=== PATIENT | female | born 1945 | race Caucasian/White ===

== ENCOUNTER → 2016-05-15 | Outpatient (CLI) | payer MEDICARE, BC ==
[~2016-05-15] MED LIST: LISI10TA2 PO; LORA-407 PO; METF500T4 PO; SIMV-39 PO; SPIR50TA31 PO; ZOLP10TA PO
--- NOTE | 2016-05-15 15:30 | RADRPT ---
PROCEDURE: Left knee radiographs. CLINICAL INDICATION: Left knee pain. Postop. TECHNIQUE: Three views. Weight bearing. Frontal, lateral, and patellar view. COMPARISON: 05/18/2014. FINDINGS: There is no fracture or dislocation. The soft tissues are normal. There is a total left knee arthroplasty which appears satisfactory. There is no lytic or blastic lesion. There is no joint effusion. IMPRESSION: 1. Satisfactory postoperative appearance of the left knee. 2. No change from 05/18/2014. RPTAT: QQ .Kwaku Rubio MD, MD Date Time Electronically viewed and signed by .Kwaku Rubio MD, MD on 05/15/2016 15:29 .R/
--- NOTE | 2016-05-15 18:07 | RADRPT ---
PROCEDURE: XR Right hip and pelvis. CLINICAL INDICATION: Right hip pain and pelvic pain. TECHNIQUE: 3 views. Frontal pelvis. Frontal and lateral right hip. COMPARISON: None. FINDINGS: There is no fracture or dislocation. The soft tissues are normal. There are degenerative changes of both hips with osteophytes noted. There is joint space narrowing on the right. There is no lytic or blastic lesion. There is no radiopaque foreign body. IMPRESSION: 1. Moderate degenerative changes of the left hip. 2. Mild degenerative changes of the left hip. 3. Otherwise unremarkable study. RPTAT: QQ .Kwaku Rubio MD, MD Date Time Electronically viewed and signed by .Kwaku Rubio MD, on 05/15/2016 18:07 .R/
== END | disposition home or self-care (01) ==
LOC: HKI 14:32
PROVIDERS: ATTEND Orthopaedic Surgery
DX: M51.36 Other intervertebral disc degeneration, lumbar region (principal); M54.16 Radiculopathy, lumbar region; Z96.652 Presence of left artificial knee joint
CPT/HCPCS: 73502; 73562; G0463

== ENCOUNTER → 2016-09-30 | Outpatient (CLI) | payer MEDICARE, BC ==
--- NOTE | 2016-09-30 13:52 | RADRPT ---
PROCEDURE: XR pelvis/right hip. CLINICAL INDICATION: Hip pain TECHNIQUE: AP pelvis/AP and lateral right hip views performed COMPARISON: 05/05/2016 FINDINGS: There is severe right hip osteoarthrosis and mild left hip osteoarthrosis. This is associated with j oint space narrowing, subchondral sclerosis , subchondral cyst formation and osteophytosis. There i s normal mineralization. No fractures or osseous lesions are identified. The soft tissues are unre markable. IMPRESSION: Severe right hip osteoarthrosis. Mild left hip osteoarthrosis RPTAT: HGDB .Justino Celestin MD, Date Time Electronically viewed and signed by .Justino Celestin MD, on 09/30/2016 13:51 .B/
== END | disposition home or self-care (01) ==
LOC: HKI 09:36
PROVIDERS: ATTEND Orthopaedic Surgery
DX: M25.551 Pain in right hip (principal); M16.11 Unilateral primary osteoarthritis, right hip; E66.01 Morbid (severe) obesity due to excess calories; Z96.652 Presence of left artificial knee joint
CPT/HCPCS: 73502; G0463

== ENCOUNTER → 2016-11-13 | Outpatient (CLI) | payer MEDICARE, BC | END | disposition home or self-care (01) | LOC: HKI 09:28 | PROVIDERS: ATTEND Orthopaedic Surgery | DX: Z01.818 Encounter for other preprocedural examination (principal) ==

== ENCOUNTER 2016-11-26 07:02 | Inpatient (IN) | payer MEDICARE, BC ==
[2016-11-26] VITALS (26 sets, daily range): BP systolic 84–167; BP diastolic 48–77; PULSE 70–98; RESP 14–22; Ht 167.6 cm; Wt 143.0 kg
[~2016-11-26] VITALS: Ht 167.6 cm; Wt 143.0 kg
[~2016-11-26 07:02] MED LIST changes: +BUPIVACAINE LIPOSOME/PF 266 MG/20 ML VIAL INFIL SCH; +CEFAZOLIN 1 GM INJ ONE; +CEFAZOLIN 2GM/50 ML (PMX) 50 ML X1 BEFORE INCISION IVPB SCH; +CELECOXIB 400 MG PO X1 DOSE PO SCH; +EXPAREL NOTE (BUPIVICAINE LIPOSOMAL) XX SCH; +LACTATED RINGER'S 1,000 ML IV SCH; +PAIN COCKTAIL-CEFUROXIME IRR SCH; +PREGABALIN 300 MG PO X1 PO SCH; +SOD CHLORIDE 0.9% IV SCH; +SOD CHLORIDE 0.9% IVPB SCH; +TRANEXAMIC ACID IV SCH; +TRANEXAMIC ACID IVPB SCH; +oxyCODONE (CR) 10 MG TAB [oxyCONTIN] X1 DOSE PO SCH; +traMADOL 50 MG TAB X 1 DOSE PO SCH
[2016-11-26] MEDS ORDERED: LOSA50TA6 PO (08:32)
[2016-11-26] MEDS ORDERED: GLIP5TAB13 PO (08:33)
[2016-11-26] MEDS ORDERED: TOLT4CAP13 PO (08:33)
[2016-11-26] MEDS ORDERED: GABA100C14 PO (08:34)
[2016-11-26] MEDS ORDERED: METF1000 PO (08:34)
--- NOTE | 2016-11-26 10:07 | HPN ---
Date/Time of Note Date/Time of Note DATE: 11/26/16 TIME: 10:06 Interval H&P Admission Note Pt. seen H&P reviewed: No system changes No changes from H&P from 11/19/16 by WALT Villafana MD Nov 26, 2016 10:07
[2016-11-26] MEDS ORDERED: VANCOMYCIN 1 GM INJ ONE (10:09)
[2016-11-26] MEDS ORDERED: POLYMYXIN B 500000 UNIT INJ ONE (10:09)
[2016-11-26] MEDS ORDERED: LIDOCAINE 2% (SDV) 5 ML INJ ONE (10:34)
[2016-11-26] MEDS ORDERED: PROPOFOL 100 ML ONE (10:34)
[2016-11-26] MEDS ORDERED: MIDAZOLAM 1 MG/ML 2 ML INJ ONE ×2 (10:35→10:50)
[2016-11-26] MEDS ORDERED: HEPARIN 1000 UNITS/ML 10 ML INJ ONE (10:36)
[2016-11-26] MEDS ORDERED: FENTAnyl 50 MCG/ML VIAL ONE (10:36)
[2016-11-26] MEDS ORDERED: BACITRACIN 50000 UNITS INJ ONE (10:52)
[2016-11-26] MEDS ORDERED: HYDROmorphONE (0.2 MG/ML) 10ML SYG IV PRN (12:30)
[2016-11-26] MEDS ORDERED: ONDANSETRON 4 MG INJ IV PRN (12:30)
[2016-11-26] MEDS ORDERED: MEPERIDINE 25 MG INJ IV PRN (12:30)
[2016-11-26] MEDS ORDERED: DIPHENHYDRAMINE 50 MG INJ IV PRN (12:30)
[2016-11-26] MEDS ORDERED: FENTAnyl 50 MCG/ML VIAL IV PRN (12:30)
[2016-11-26] MEDS ORDERED: PROCHLORPERAZINE 10 MG INJ IV PRN (12:30)
[2016-11-26] MEDS ORDERED: EPHEDrine SULFATE 50 MG/5 ML SYG ONE (12:57)
[2016-11-26] MEDS ORDERED: FAMOTIDINE 20 MG INJ ONE (12:58)
[2016-11-26] MEDS ORDERED: METOCLOPRAMIDE 10 MG INJ ONE (12:58)
[2016-11-26] MEDS ORDERED: ONDANSETRON 4 MG INJ ONE (12:58)
[2016-11-26] MEDS ORDERED: SUCCINYLCHOLINE CHLORIDE 100 MG/5 ML SYG IV ONE (13:52)
[2016-11-26] MEDS ORDERED: MAGNESIUM HYDROXIDE 30ML CUP PO PRN (15:00)
[2016-11-26] MEDS ORDERED: NACL 0.9% 3 ML SYG IV SCH (15:00)
[2016-11-26] MEDS ORDERED: NA PHOSPHATE/BIPHOS 133 ML ENEMA PR PRN (15:00)
[2016-11-26] MEDS ORDERED: DIPHENHYDRAMINE 25 MG CAP PO PRN (15:00)
--- NOTE | 2016-11-26 15:04 | OPR ---
Date/Time of Note Date/Time of Note DATE: 11/26/16 TIME: 15:01 Operative Report Procedure Description DATE: 11/26/2016 PREOPERATIVE DIAGNOSIS: Right hip osteoarthritis POSTOPERATIVE DIAGNOSIS: Right hip osteoarthritis OPERATION PERFORMED: Right anterior total hip arthroplasty SURGEON: Walt Abbott MD BRUSH HOLDER INSPECTOR: Jamie Ramos PA-C COMPONENTS USED: DePuy 48 mm Gription Madison cup, one 6.5 millimeters screw, 48/32 Altrx polyethylene liner, 3 standard Actis stem, 32+5 ceramic head ANESTHESIA: Spinal plus general endotracheal intubation. ANESTHESIOLOGIST: Gill Dai M.D. ESTIMATED BLOOD LOSS: 500 cc INTRAVENOUS FLUIDS: Crystalloid 3700 cc crystalloid, 125 cc autologous Cell Saver blood SPECIMENS: Femoral head. DRAINS: Hemovac 1 COMPLICATIONS: None. DISPOSITION: The patient tolerated the procedure well and was taken to the recovery room in stable condition. INDICATIONS: The patient is a 71-year-old woman with severe right hip osteoarthritis who has had worsening pain despite nonsurgical means of treatment including activity modifications, ambulatory assist devices, and anti- inflammatory medications. Despite these measures she has had worsening pain I feel she will benefit from a total hip arthroplasty through an anterior approach. The risks, benefits, and alternatives of the procedure were explained in detail to the patient. I explained the risks of the surgery to include, but not be limited to: bleeding and possible need for blood transfusion; infection; pain; stiffness; neurovascular injury with possible numbness, weakness, and/or paralysis anywhere from the hip down to the toes; fracture; instability; dislocation; leg length inequality; wear and/or loosening of the prosthesis and possible need for future revision; blood clots; pulmonary embolism; and anesthetic complications such as heart attack, stroke, GI bleed, pneumonia, and/ or . Ample time was allowed for the patient to ask questions, all of which were addressed and answered. The patient understood the risks involved and wished to proceed. Informed consent was signed prior to the procedure. PROCEDURE: The patient's right hip was initialed with a marking pen in the preoperative area to identify the correct operative site. The patient was brought to the operating room and transferred from the [facility] to the [facility] where a spinal anesthetic was administered. The patient was then anesthetized and intubated. A Cooper catheter was placed. Both feet were placed into well padded boots which were then placed into the leg holders of the traction booms. A timeout was performed to confirm that the right side was the correct operative site. The patient was given 2 g of intravenous Ancef within one hour prior to the procedure. The operative hip was prepped and draped in the usual sterile fashion. A 10 cm oblique incision was made over the anterior aspect of the hip and carried down through subcutaneous tissue and fat with sharp dissection. The tensor fascia astrid was incised along the length of the wound. The tensor fascia muscle was retracted laterally and the sartorius medially. The anterior circumflex vessels were identified and tied off with 2-0 silk suture and coagulated with the Tissue Link collection systems administrator. The rectus femoris was elevated off the anterior capsule and an anterior capsulectomy performed. A femoral neck osteotomy was made and the head removed from the acetabulum. The acetabulum was denuded of cartilage circumferentially, as was the femoral head. Retractors were placed around the acetabulum. The remnants of the labrum and ligamentum teres were excised. I reamed the acetabulum to the medial wall and then went into an anatomic position and increased the reamer size in 2 mm increments until I got a good bite and was down to bleeding subchondral bone. The Madison cup was opened and impacted into the acetabulum and sat flush circumferentially, getting a good bite. C-arm imaging showed it had about 40 to 45 degrees of abduction and 20 degrees of anteversion. A single 6.5 screw was drilled and filled to appropriate length, getting a good bite. remove this sentence if no screws are utilized] The real liner was opened and impacted into the acetabulum and sat flush circumferentially. Attention was turned towards the femur. The operative leg was carefully lowered to the floor with the leg adducted. The foot was then externally rotated to approximately 110 degrees. A posteromedial release was performed to optimize exposure. The femoral hook was placed underneath the proximal femur and the hydraulic lift was then used to elevate the femur up out of the wound. The anju cutter osteotome was used to remove the remaining overhanging greater trochanter. The femur was then broached, going up in one size increments until it sat flush with the neck cut and a stable fit was achieved. The trial neck and head were assembled and reduced into the acetabulum. Fluoroscopic imaging showed the components to be in good position and the leg lengths and offsets to be equal. At this point, the trial was dislocated and the trial broach removed. The canal was irrigated and dried. The real stem was opened and impacted into the femur. The trunnion was irrigated and dried, and the real femoral head was impacted onto the trunnion, and reduced into the acetabulum. The soft tissues were infiltrated with a mixture of 150 mg of 0.5% Bupivacaine, 8 mg of Duramorph, 300 mcg of epinephrine, 30 mg of Toradol, 100 mcg of clonidine, 750 mg of cefuroxime and 86 mL of normal saline, followed by an injection of 266 mg of liposomal Bupivacaine. At this point the hip was irrigated with a mixture of betadine/saline and then antibiotic saline with pulsatile lavage. A Hemovac drain was placed in the deep portion of the wound and brought out the anterolateral thigh. There was good hemostasis. The tensor fascia astrid was repaired with a running #1 Vicryl. The deep fat layer was irrigated and closed with 2-0 Stratafix and the subcutaneous layer closed with 3 -0 Vicryl and the skin was closed with verito and then sealed with Dermabond. The drain was secured with 3-0 nylon. The sponge and needle counts were correct at the end of the case. The wound was covered with an occlusive dressing. The patient was awakened, extubated, and taken to the recovery room in stable condition. WALT ABBOTT MD Nov 26, 2016 15:04
[2016-11-26 15:18] LABS: ABNORMAL IP MESSAGE 1; HEMATOCRIT 35.5 % (37.0-47.0); HEMOGLOBIN 11.5 g/dl (12.0-16.0); MEAN CORPUSCULAR HGB CONC 32.4 g/dl (32.0-37.0); MEAN CORPUSCULAR VOLUME 95.7 fl (82.0-101.0); RED BLOOD COUNT 3.71 10^6/ul (4.20-5.40); RED CELL DISTRIBUTION WIDTH 14.2 % (11.5-14.5); WHITE BLOOD COUNT 6.7 10^3/ul (4.8-10.8)
[2016-11-26 15:20] LABS: POSITIVE DIFF @See below
[2016-11-26] MEDS: CEFAZOLIN 2 GM/50 ML (PMX) 50 ML IVPB SCH ×2 (15:32→23:06)
--- NOTE | 2016-11-26 15:32 | PN ---
Date/Time of Note Date/Time of Note DATE: 11/26/16 TIME: 15:31 Assessment/Plan Lines/Catheters IV Catheter Type (from Nrsg): Saline Lock Assessment/Plan Assessment/Plan Stable in PACU, s/p right anterior ANA -continue Ancef -pain meds as needed -SCDs BLE for DVT prophylaxis -hold ASA due to low preoperative platelet count -check AM labs -monitor drain -medicine to manage diabetic control -d/c brooks in AM XR of the right hip is pending at this time Subjective 24 Hr Interval Summary Stable in PACU. Denies pain. Moving all extremities. Exam/Review of Systems Vital Signs Vitals Vital Signs Date Time Temp Pulse Resp B/P Pulse Ox O2 Delivery O2 Flow Rate FiO2 11/26/16 16:15 98.1 81 16 126/56 99 Nasal Cannula 2.0 Exam Free Text/Dictation Hemovac: minimal Dressing dry Incision clean, dry, and intact without redness or drainage 5/5 Quadriceps, Tibialis Anterior, EHL, Gastroc, Soleus, Peroneals Normal sensation Palpable DT/PT, CR <2 sec No distal edema Results Result Diagram: 11/26/16 1512 11/26/16 1512 LUKAS MUNOZ PA-C Nov 26, 2016 15:32
[2016-11-26 15:54] LABS: EOSINOPHILS # 0.2 10^3/ul (0.0-0.5); LYMPHOCYTES # 1.9 10^3/ul (0.8-2.9); MONOCYTE # 0.3 10^3/ul (0.3-0.9); NEUTROPHIL # 4.1 10^3/ul (1.6-7.5)
[2016-11-26 15:57] LABS: PLATELET COUNT 82 10^3/UL (140-415)
[2016-11-26] MEDS ORDERED: GLUCOSE GEL 15 GRAM TUBE PO PRN ×2 (16:00)
[2016-11-26] MEDS ORDERED: GLUCAGON 1 MG INJ IM PRN (16:00)
[2016-11-26] MEDS ORDERED: GLUCOSE GEL 15 GRAM TUBE BUCCAL PRN (16:00)
[2016-11-26] MEDS ORDERED: DEXTROSE 50% 50 ML SYRINGE IV PRN ×2 (16:00)
[2016-11-26 16:04] LABS: CALCIUM 7.8 mg/dl (8.4-10.2); CREATININE 1.26 mg/dl (0.44-1.00); POTASSIUM 4.4 mmol/L (3.5-5.1)
--- NOTE | 2016-11-26 16:33 | RADRPT ---
PROCEDURE: XR Hip. CLINICAL INDICATION: Right hip pain. Postoperative evaluation TECHNIQUE: A single view of the right hip was obtained. COMPARISON: 09/30/2016 FINDINGS: Interval placement of a right hip arthroplasty is seen and is without evidence of hardware loosening of lucency. A drain is seen in place within the operative bed. Soft tissue air in the right later al hip soft tissues is seen. No acute fracture or dislocations are seen. The remaining soft tissue structures are intact. A Cooper catheter is seen. IMPRESSION: Status post right hip arthroplasty with acute postoperative changes. RPTAT: HPNM Physician Tone Date Time Electronically viewed and signed by Physician Tone on 11/26/2016 16:33 /
[2016-11-26] MEDS: LACTATED RINGER'S 1,000 ML IV SCH ×2 (16:41→23:00)
--- NOTE | 2016-11-26 16:45 | RADRPT ---
PROCEDURE: Fluoroscopic guidance with x-ray images during right hip replacement. CLINICAL INDICATION: Right hip replacement. TECHNIQUE: 14 x-ray images were obtained during right hip replacement. COMPARISON: None available FINDINGS: 8.9 minutes of fluoroscopy time was utilized during pacemaker insertion. 14th x-ray images were obt ained during the procedure in progress for guidance. Cumulative dose total is 31.5 mGy and 0.892 mGy m2. Procedure was performed by Dr. Keenan. IMPRESSION: 1. Fluoroscopic guidance with x-ray images obtained for right hip replacement. RPTAT: XX .Benjy Kenny MD, MD Date Time Electronically viewed and signed by .Benjy Kenny MD, on 11/26/2016 16:44 .T/
[2016-11-26] MEDS: INSULIN ASPART [NOVOLOG] 3 ML PEN SC SCH (17:25)
[2016-11-26] MEDS: LOSARTAN 50 MG TAB PO SCH (17:51)
[2016-11-26] MEDS: metFORMIN 500 MG TAB PO SCH (17:55)
[2016-11-26] MEDS ORDERED: SOD CHLORIDE 0.9% IVPB ONE ×2 (18:00→21:00)
[2016-11-26] MEDS: PANTOPRAZOLE (EC) 40 MG TAB PO SCH (18:00)
[2016-11-26] MEDS ORDERED: TRANEXAMIC ACID IVPB ONE ×2 (18:00→21:00)
[2016-11-26] MEDS: DOCUSATE SODIUM 100 MG CAP PO SCH (21:37)
[2016-11-26] MEDS: TRIMETHOPRIM/SULFAMETHOX (DS) TAB PO SCH (21:37)
[2016-11-26] MEDS: GABAPENTIN 100 MG CAP PO SCH (21:37)
[2016-11-27] VITALS (8 sets, daily range): BP systolic 89–135; BP diastolic 51–59; PULSE 70–79; RESP 17–20
[2016-11-27] MEDS ORDERED: SOD CHLORIDE 0.9% 250 ML IV ONE (00:30)
[2016-11-27] MEDS: HYDROCODONE/APAP (5/325) TAB PO PRN ×3 (01:47→14:49)
[2016-11-27] MEDS: PANTOPRAZOLE (EC) 40 MG TAB PO SCH ×2 (05:07→17:52)
[2016-11-27 05:37] LABS: ABNORMAL IP MESSAGE 1; BASOPHILS % 0.4 % (0.0-2.0); EOSINOPHILS # 0.1 10^3/ul (0.0-0.5); EOSINOPHILS % 1.6 % (0.0-7.0); HEMATOCRIT 29.4 % (37.0-47.0); HEMOGLOBIN 9.4 g/dl (12.0-16.0); LYMPHOCYTES # 1.4 10^3/ul (0.8-2.9); LYMPHOCYTES % 24.1 % (15.0-51.0); MEAN CORPUSCULAR HEMOGLOBIN 30.8 pg (29.0-33.0); MEAN CORPUSCULAR VOLUME 96.4 fl (82.0-101.0); MEAN PLATELET VOLUME 9.3 fl (7.4-10.4); MONOCYTE # 0.5 10^3/ul (0.3-0.9); NEUTROPHIL # 3.6 10^3/ul (1.6-7.5); NEUTROPHILS % 64.5 % (39.0-77.0); PLATELET COUNT 68 10^3/UL (140-415); RED BLOOD COUNT 3.05 10^6/ul (4.20-5.40); RED CELL DISTRIBUTION WIDTH 14.6 % (11.5-14.5); WHITE BLOOD COUNT 5.6 10^3/ul (4.8-10.8)
[2016-11-27] MEDS: LACTATED RINGER'S 1,000 ML IV SCH ×3 (05:56→22:19)
[2016-11-27 06:06] LABS: POSITIVE DIFF @See below
[2016-11-27] MEDS: CEFAZOLIN 2 GM/50 ML (PMX) 50 ML IVPB SCH (06:51)
[2016-11-27 07:03] LABS: MAGNESIUM 1.6 mg/dl (1.7-2.5); PHOSPHORUS 3.7 mg/dl (2.5-4.9)
[2016-11-27 07:06] LABS: CALCIUM 7.6 mg/dl (8.4-10.2); CREATININE 1.08 mg/dl (0.44-1.00); POTASSIUM 4.7 mmol/L (3.5-5.1)
--- NOTE | 2016-11-27 07:32 | PDOCDIS ---
Discharge Instructions DIAGNOSIS Discharge Diagnosis s/p right anterior ANA CONDITION Patient Condition: Fair HOME CARE INSTRUCTIONS: Diet Instructions: Regular ACTIVITY: Activity Restrictions: Slowly Increase Activity Rest between Activity Avoid heavy lifting Do not operate Machinery Do not operate Power Tool Avoid Heavy Housework Keep Limb Elevated Weight Bearing Bathing Restrictions: Shower FOLLOW UP/APPOINTMENTS Follow-up Plan follow up in the office on 12/07/16 OTHER ORDERS: Other Orders: S/P Anterior ANA Physical Therapy: Three times per week at home x 2 weeks Daily in Rehab/SNF WB STATUS: WBAT Strengthening exercises for both upper and un-operated lower extremities. 1. Gait training with front wheeled walker 2. Wide base gait, no pivot turns. 3. Abductor strengthening. 4. Quadriceps and hamstring strengthening. 5. May switch to cane in contra lateral hand 6 weeks after surgery. 6. Physical Therapy can open case if nursing is not available. 7. Ice Packs while at rest to surgical wound for 20 minutes, 3 times/day. 8. Patient requires mobile SCDs to reduce risk of developing DVT following ANA. Patient will use the mobile SCDs for 30 days postoperatively. Hip Precautions: No posterior hip precautions. Bathing assistance by home health aide twice weekly if Medicare patient. Occupational Therapy: Evaluation for assistive devices and ADL training. Wound Care: Keep incision dry & covered with Tegaderm until first visit with Dr. Keenan Anticoagulation Orders: Enteric Coated Aspirin 325 mg po bid x 6 weeks from date of surgery Follow-up:Call for an appointment with Dr. Keenan in 1 week after discharged from hospital at DME Orders: GREGG, 3-in-1 Commode, Mobile SCDs LUKAS MUNOZ PA-C Nov 27, 2016 07:32
[2016-11-27] MEDS ORDERED: HYDR-3498 PO (07:33)
[2016-11-27] MEDS ORDERED: PANT40TA4 PO (07:33)
--- NOTE | 2016-11-27 08:59 | PN ---
Date/Time of Note Date/Time of Note DATE: 11/27/16 TIME: 08:57 Assessment/Plan Lines/Catheters IV Catheter Type (from Nrsg): Peripheral IV Cooper in Place (from Nrsg): Yes Assessment/Plan Assessment/Plan POD #1, s/p right anterior ANA -continue Ancef until drains removed -pain meds as needed -SCDs BLE for DVT prophylaxis. Continue to hold ASA due to thrombocytopenia -Heme to consult given low platelets -OOB with PT -monitor drain -check AM labs -d/c planning. Will plan to go to [facility] upon discharge Subjective 24 Hr Interval Summary No acute overnight events. Denies significant pain. Did not start PT yesterday. VSS, afebrile. Platelets dropped mildly since yesterday. Would like to go to [facility] upon discharge. Exam/Review of Systems Vital Signs Vitals Vital Signs Date Time Temp Pulse Resp B/P Pulse Ox O2 Delivery O2 Flow Rate FiO2 11/27/16 08:16 97.8 77 19 108/58 98 11/27/16 05:14 Nasal Cannula 2.0 Intake and Output 11/26/16 11/26/16 11/27/16 15:00 23:00 07:00 Intake Total 250 ml 4624.3 ml 2650 ml Output Total 590 ml 1150 ml 1800 ml Balance -340 ml 3474.3 ml 850 ml Exam Free Text/Dictation Hemovac: 165cc Dressing dry Incision clean, dry, and intact without redness or drainage 5/5 Quadriceps, Tibialis Anterior, EHL, Gastroc, Soleus, Peroneals Normal sensation Palpable DT/PT, CR <2 sec No distal edema Results Result Diagram: 11/27/16 0438 11/27/16 0438 LUKAS MUNOZ PA-C Nov 27, 2016 08:59
[2016-11-27] MEDS: LOSARTAN 50 MG TAB PO SCH (09:00)
[2016-11-27] MEDS: glipiZIDE 5 MG TAB PO SCH (09:00)
[2016-11-27] MEDS: INSULIN ASPART [NOVOLOG] 3 ML PEN SC SCH ×3 (09:07→17:25)
[2016-11-27] MEDS: GABAPENTIN 100 MG CAP PO SCH ×2 (09:12→17:53)
[2016-11-27] MEDS: metFORMIN 500 MG TAB PO SCH ×2 (09:12→17:53)
[2016-11-27] MEDS: TRIMETHOPRIM/SULFAMETHOX (DS) TAB PO SCH ×2 (09:13→20:15)
[2016-11-27] MEDS: DOCUSATE SODIUM 100 MG CAP PO SCH ×2 (09:13→20:16)
--- NOTE | 2016-11-27 10:35 | CONS ---
Date/Time of Note Date/Time of Note DATE: 11/27/16 TIME: 10:20 Assessment/Plan Assessment/Plan Chief Complaint/Hosp Course 71 yo woman with chronic thrombocytopenia. Usual platelet count is about 75 to 80 K. She is currently in the same range and has no unusual bleeding. I would continue to monitor as needed but do not advocate platelet transfusions now. We will monitor both the RBC and plt. Problems: Consultation Date/Type/Reason Admit Date/Time Nov 26, 2016 at 07:02 Date of Consultation: Nov 27, 2016 Type of Consultation: hematology Reason for Consultation thrombocytopenia Pt is s/p right hip and is seen for chronic thrombocytopenia. She has been followed by Dr. Mcwilliams and the etiology is felt to be due to fatty liver and hypersplenism. She is recovering well from surgery. Drain is still in place. She is sitting in chair and there is some blood in the drain but urine is clear in the Cooper bag. Other history is notable for morbid obesity, hypertension, diabetes, fatty liver , splenomegaly and history of tachycardia. Social History Smoking Status: Never smoker Exam/Review of Systems Vital Signs Vitals Vital Signs Date Time Temp Pulse Resp B/P Pulse Ox O2 Delivery O2 Flow Rate FiO2 11/27/16 09:04 79 20 121/59 100 Nasal Cannula 2.0 11/27/16 08:16 97.8 Intake and Output 11/26/16 11/26/16 11/27/16 15:00 23:00 07:00 Intake Total 250 ml 4624.3 ml 2650 ml Output Total 590 ml 1150 ml 1800 ml Balance -340 ml 3474.3 ml 850 ml Exam Constitutional: alert, obese, oriented Respiratory: clear to auscultation Cardiovascular: regular rate and rhythm Gastrointestinal: non-tender, soft Extremities: other (s/p right hip surgery) Results Result Diagram: 11/27/16 0438 11/27/16 0438 Results 24 hrs Laboratory Tests Test 11/26/16 14:59 11/26/16 15:12 11/26/16 17:40 11/27/16 04:38 Bedside Glucose 98 130 White Blood Count 6.7 5.6 Red Blood Count 3.71 L 3.05 L Hemoglobin 11.5 L 9.4 L Hematocrit 35.5 L 29.4 L Mean Corpuscular Volume 95.7 96.4 Mean Corpuscular Hemoglobin 31.0 30.8 Mean Corpuscular Hemoglobin Concent 32.4 32.0 Red Cell Distribution Width 14.2 14.6 H Platelet Count 82 L 68 L Mean Platelet Volume 9.0 9.3 Neutrophils % 61.0 64.5 Lymphocytes % 28.0 24.1 Monocytes % 5.0 9.0 Eosinophils % 3.0 1.6 Nucleated Red Blood Cells % 0.0 0.0 Neutrophils # 4.1 3.6 Band Neutrophils # 4.1 H Lymphocytes # 1.9 1.4 Monocytes # 0.3 0.5 Eosinophils # 0.2 0.1 Sodium Level 140 139 Potassium Level 4.4 4.7 Chloride Level 107 103 Carbon Dioxide Level 21 25 Anion Gap 16 16 Blood Urea Nitrogen 16 13 Creatinine 1.26 H 1.08 H Glucose Level 111 107 Calcium Level 7.8 L 7.6 L Basophils % 0.4 Basophils # 0.0 Nucleated Red Blood Cells # 0.0 Test 11/27/16 04:39 11/27/16 09:01 Phosphorus Level 3.7 Magnesium Level 1.6 L Bedside Glucose 106 Medications Medications Current Medications Miscellaneous Information 1 ea 1 ea NOTE XX ; Start 11/26/16 at 07:00; Stop at 06:59 Lactated Ringer's (Lr) 1,000 ml @ 125 mls/hr Q8H IV Last administered on 05:56; Admin Dose 125 MLS/HR; Start 11/26/16 at 15:00 Acetaminophen/ Hydrocodone Bitart ([place] (5/325)) 1 tab Q4H PRN PO PAIN LEVEL 1 -3 Last administered on 11/27/16 05:07; Admin Dose 1 TAB; Start 11/26/16 at 15: 00 Acetaminophen/ Hydrocodone Bitart ([place] (5/325)) 2 tab Q4H PRN PO PAIN LEVEL 4 -7; Start 11/26/16 at 15:00 Hydromorphone HCl (Dilaudid) 1 mg Q3H PRN IV PAIN LEVEL 8-10; Start 11/26/16 at 15:00 Ondansetron HCl (Zofran Inj) 4 mg Q6H PRN IV NAUSEA AND/OR VOMITING; Start at 15:00 Bisacodyl (Dulcolax Supp) 10 mg Q12H PRN OR CONSTIPATION; Start 11/26/16 at 15: 00 Magnesium Hydroxide (Milk Of Mag) 30 ml BID PRN PO CONSTIPATION; Start at 15:00 Sodium Biphosphate/ Sodium Phosphate (Fleet Enema) 133 ml DAILY PRN OR CONSTIPATION; Start 11/26/16 at 15:00 Docusate Sodium (Colace) 100 mg BID PO Last administered on 11/27/16 09:13; Admin Dose 100 MG; Start 11/26/16 at 21:00 Diphenhydramine HCl (Benadryl) 25 mg Q6H PRN PO PRURITUS; Start 11/26/16 at 15: 00 Pantoprazole (Protonix Tab) 40 mg BID@06,18 PO Last administered on 11/27/16 05:07; Admin Dose 40 MG; Start 11/26/16 at 18:00 Trimethoprim/ Sulfamethoxazole (Bactrim (Ds)) 1 tab BID PO Last administered on 11/27/16 09:13; Admin Dose 1 TAB; Start 11/26/16 at 21:00 Gabapentin (Neurontin) 100 mg BID PO Last administered on 11/27/16 09:12; Admin Dose 100 MG; Start 11/26/16 at 21:00 Glipizide (Glucotrol) 5 mg AM PO ; Start 11/27/16 at 09:00 Losartan Potassium (Cozaar) 50 mg DAILY PO ; Start 11/26/16 at 16:00 Miscellaneous Information 1 ea NOTE XX ; Start 11/26/16 at 16:00 Glucose (Glutose) 15 gm Q15M PRN PO DECREASED GLUCOSE; Start 11/26/16 at 16:00 Glucose (Glutose) 22.5 gm Q15M PRN PO DECREASED GLUCOSE; Start 11/26/16 at 16: 00 Dextrose (D50w Syringe) 25 ml Q15M PRN IV DECREASED GLUCOSE; Start 11/26/16 at 16:00 Dextrose (D50w Syringe) 50 ml Q15M PRN IV DECREASED GLUCOSE; Start 11/26/16 at 16:00 Glucagon (Glucagen) 1 mg Q15M PRN IM DECREASED GLUCOSE; Start 11/26/16 at 16:00 Glucose 15 gm 15 gm Q15M PRN BUCCAL DECREASED GLUCOSE; Start 11/26/16 at 16:00 Cefazolin Sodium/ Sodium Chloride (Ancef/NS) 100 ml @ 100 mls/hr Q8 IVPB ; Start 11/27/16 at 14:00; Stop 11/28/16 at 11:00 KATHY ROMERO MD Nov 27, 2016 10:30
[2016-11-27 12:16] LABS: ADD UMIC YES; UR ASCORBIC ACID NEGATIVE (NEGATIVE); UR BACTERIA FEW /HPF (NONE SEEN); UR BILIRUBIN (Dip) NEGATIVE (NEGATIVE); UR BLOOD (Dip) 3+ mg/dL (NEGATIVE); UR CLARITY CLEAR (CLEAR); UR COLOR YELLOW (YELLOW); UR GLUCOSE (Dip) NEGATIVE (NEGATIVE); UR KETONES (Dip) NEGATIVE (NEGATIVE); UR LEUKOCYTE ESTERASE (Dip) NEGATIVE Leu/ul (NEGATIVE); UR NITRITE (Dip) NEGATIVE (NEGATIVE); UR RBC 133 /HPF (0-5); UR SPECIFIC GRAVITY (Dip) 1.011 (1.003-1.030); UR TOTAL PROTEIN (Dip) 1+ mg/dl (NEGATIVE); UR UROBILINOGEN (Dip) NEGATIVE (NEGATIVE)
[2016-11-27] MEDS: HYDROmorphONE 1 MG/ML SYG IV PRN (12:30)
--- NOTE | 2016-11-27 13:25 | CONS ---
Date/Time of Note Date/Time of Note DATE: 11/27/16 TIME: 13:23 Assessment/Plan Assessment/Plan Problems: (1) Thrombocytopenia Comment: stable, and no clinical bleeding (2) History of right hip replacement Comment: is POD #1 and doing well (3) Diabetes mellitus Status: Chronic Comment: controlled (4) HTN (hypertension) Comment: controlled Consultation Date/Type/Reason Admit Date/Time Nov 26, 2016 at 07:02 Initial Consult Date 11/27/16 Type of Consultation: im 24 HR Interval Summary Free Text/Dictation doing well, POD #1 Exam/Review of Systems Vital Signs Vitals Vital Signs Date Time Temp Pulse Resp B/P Pulse Ox O2 Delivery O2 Flow Rate FiO2 11/27/16 09:04 79 20 121/59 100 Nasal Cannula 2.0 11/27/16 08:16 97.8 Intake and Output 11/26/16 11/26/16 11/27/16 15:00 23:00 07:00 Intake Total 250 ml 4624.3 ml 2650 ml Output Total 590 ml 1150 ml 1800 ml Balance -340 ml 3474.3 ml 850 ml Exam Constitutional: alert, oriented Neck: supple Cardiovascular: regular rate and rhythm Gastrointestinal: soft Extremities: normal pulses (no calf pain) Results Result Diagram: 11/27/16 0438 11/27/16 0438 Results 24 hrs Laboratory Tests Test 11/26/16 14:59 11/26/16 15:12 11/26/16 17:40 11/27/16 04:38 Bedside Glucose 98 130 White Blood Count 6.7 5.6 Red Blood Count 3.71 L 3.05 L Hemoglobin 11.5 L 9.4 L Hematocrit 35.5 L 29.4 L Mean Corpuscular Volume 95.7 96.4 Mean Corpuscular Hemoglobin 31.0 30.8 Mean Corpuscular Hemoglobin Concent 32.4 32.0 Red Cell Distribution Width 14.2 14.6 H Platelet Count 82 L 68 L Mean Platelet Volume 9.0 9.3 Neutrophils % 61.0 64.5 Lymphocytes % 28.0 24.1 Monocytes % 5.0 9.0 Eosinophils % 3.0 1.6 Nucleated Red Blood Cells % 0.0 0.0 Neutrophils # 4.1 3.6 Band Neutrophils # 4.1 H Lymphocytes # 1.9 1.4 Monocytes # 0.3 0.5 Eosinophils # 0.2 0.1 Sodium Level 140 139 Potassium Level 4.4 4.7 Chloride Level 107 103 Carbon Dioxide Level 21 25 Anion Gap 16 16 Blood Urea Nitrogen 16 13 Creatinine 1.26 H 1.08 H Glucose Level 111 107 Calcium Level 7.8 L 7.6 L Basophils % 0.4 Basophils # 0.0 Nucleated Red Blood Cells # 0.0 Test 11/27/16 04:39 11/27/16 09:01 11/27/16 11:10 11/27/16 13:03 Phosphorus Level 3.7 Magnesium Level 1.6 L Bedside Glucose 106 129 Urine Color YELLOW Urine Clarity CLEAR Urine pH 5.0 Urine Specific [place] 1.011 Urine Ketones NEGATIVE Urine Nitrite NEGATIVE Urine Bilirubin NEGATIVE Urine Urobilinogen NEGATIVE Urine Leukocyte Esterase NEGATIVE Urine Microscopic RBC 133 H Urine Microscopic WBC 12 H Urine Bacteria FEW A Urine Hemoglobin 3+ H Urine Glucose NEGATIVE Urine Total Protein 1+ H Medications Medications Current Medications Miscellaneous Information 1 ea 1 ea NOTE XX ; Start 11/26/16 at 07:00; Stop at 06:59 Lactated Ringer's (Lr) 1,000 ml @ 125 mls/hr Q8H IV Last administered on 05:56; Admin Dose 125 MLS/HR; Start 11/26/16 at 15:00 Acetaminophen/ Hydrocodone Bitart ([place] (5/325)) 1 tab Q4H PRN PO PAIN LEVEL 1 -3 Last administered on 11/27/16 05:07; Admin Dose 1 TAB; Start 11/26/16 at 15: 00 Acetaminophen/ Hydrocodone Bitart ([place] (5/325)) 2 tab Q4H PRN PO PAIN LEVEL 4 -7; Start 11/26/16 at 15:00 Hydromorphone HCl (Dilaudid) 1 mg Q3H PRN IV PAIN LEVEL 8-10 Last administered on 11/27/16 12:30; Admin Dose 1 MG; Start 11/26/16 at 15:00 Ondansetron HCl (Zofran Inj) 4 mg Q6H PRN IV NAUSEA AND/OR VOMITING; Start at 15:00 Bisacodyl (Dulcolax Supp) 10 mg Q12H PRN [place] CONSTIPATION; Start 11/26/16 at 15: 00 Magnesium Hydroxide (Milk Of Mag) 30 ml BID PRN [place] CONSTIPATION; Start at 15:00 Sodium Biphosphate/ Sodium Phosphate (Fleet Enema) 133 ml DAILY PRN [place] CONSTIPATION; Start 11/26/16 at 15:00 Docusate Sodium (Colace) 100 mg BID PO Last administered on 11/27/16 09:13; Admin Dose 100 MG; Start 11/26/16 at 21:00 Diphenhydramine HCl (Benadryl) 25 mg Q6H PRN PO PRURITUS; Start 11/26/16 at 15: 00 Pantoprazole (Protonix Tab) 40 mg BID@06,18 PO Last administered on 11/27/16 05:07; Admin Dose 40 MG; Start 11/26/16 at 18:00 Trimethoprim/ Sulfamethoxazole (Bactrim (Ds)) 1 tab BID PO Last administered on 11/27/16 09:13; Admin Dose 1 TAB; Start 11/26/16 at 21:00 Gabapentin (Neurontin) 100 mg BID PO Last administered on 11/27/16 09:12; Admin Dose 100 MG; Start 11/26/16 at 21:00 Glipizide (Glucotrol) 5 mg AM PO ; Start 11/27/16 at 09:00 Losartan Potassium (Cozaar) 50 mg DAILY PO ; Start 11/26/16 at 16:00 Miscellaneous Information 1 ea NOTE XX ; Start 11/26/16 at 16:00 Glucose (Glutose) 15 gm Q15M PRN PO DECREASED GLUCOSE; Start 11/26/16 at 16:00 Glucose (Glutose) 22.5 gm Q15M PRN PO DECREASED GLUCOSE; Start 11/26/16 at 16: 00 Dextrose (D50w Syringe) 25 ml Q15M PRN IV DECREASED GLUCOSE; Start 11/26/16 at 16:00 Dextrose (D50w Syringe) 50 ml Q15M PRN IV DECREASED GLUCOSE; Start 11/26/16 at 16:00 Glucagon (Glucagen) 1 mg Q15M PRN IM DECREASED GLUCOSE; Start 11/26/16 at 16:00 Glucose 15 gm 15 gm Q15M PRN BUCCAL DECREASED GLUCOSE; Start 11/26/16 at 16:00 Cefazolin Sodium/ Sodium Chloride (Ancef/NS) 100 ml @ 100 mls/hr Q8 IVPB ; Start 11/27/16 at 14:00; Stop 11/28/16 at 11:00 CARLIN MONTEMAYOR MD Nov 27, 2016 13:24
[2016-11-27] MEDS ORDERED: CEFAZOLIN 1 GM INJ IVPB SCH ×2 (14:00)
[2016-11-27] MEDS: CEFAZOLIN 3 GM in SOD CHLORIDE 0.9% 100 ML IVPB SCH ×2 (14:45→22:17)
[2016-11-28] MEDS: HYDROmorphONE 1 MG/ML SYG IV PRN ×2 (02:16→08:49)
[2016-11-28 02:20] VITALS: BP 130/72; PULSE 70; RESP 18
[2016-11-28 05:18] LABS: ABNORMAL IP MESSAGE 1; BASOPHILS % 0.2 % (0.0-2.0); EOSINOPHILS # 0.1 10^3/ul (0.0-0.5); EOSINOPHILS % 2.1 % (0.0-7.0); HEMATOCRIT 30.1 % (37.0-47.0); HEMOGLOBIN 9.6 g/dl (12.0-16.0); LYMPHOCYTES # 1.3 10^3/ul (0.8-2.9); LYMPHOCYTES % 20.8 % (15.0-51.0); MEAN CORPUSCULAR HEMOGLOBIN 30.3 pg (29.0-33.0); MEAN CORPUSCULAR HGB CONC 31.9 g/dl (32.0-37.0); MEAN PLATELET VOLUME 9.5 fl (7.4-10.4); MONOCYTE # 0.5 10^3/ul (0.3-0.9); MONOCYTES % 8.7 % (0.0-11.0); NEUTROPHIL # 4.2 10^3/ul (1.6-7.5); NEUTROPHILS % 67.7 % (39.0-77.0); PLATELET COUNT 63 10^3/UL (140-415); RED BLOOD COUNT 3.17 10^6/ul (4.20-5.40); RED CELL DISTRIBUTION WIDTH 14.6 % (11.5-14.5); WHITE BLOOD COUNT 6.2 10^3/ul (4.8-10.8)
[2016-11-28 05:27] LABS: POSITIVE DIFF @See below
[2016-11-28 05:39] LABS: CALCIUM 8.1 mg/dl (8.4-10.2); CREATININE 1.19 mg/dl (0.44-1.00); POTASSIUM 5.4 mmol/L (3.5-5.1)
[2016-11-28] MEDS: CEFAZOLIN 3 GM in SOD CHLORIDE 0.9% 100 ML IVPB SCH (05:44)
[2016-11-28] MEDS: PANTOPRAZOLE (EC) 40 MG TAB PO SCH ×2 (05:44→17:46)
[2016-11-28] MEDS: LACTATED RINGER'S 1,000 ML IV SCH (07:00)
[2016-11-28 08:25] VITALS: BP 121/87; RESP 20
[2016-11-28] MEDS: GABAPENTIN 100 MG CAP PO SCH ×2 (08:50→20:23)
[2016-11-28] MEDS: TRIMETHOPRIM/SULFAMETHOX (DS) TAB PO SCH (08:50)
[2016-11-28] MEDS: DOCUSATE SODIUM 100 MG CAP PO SCH ×2 (08:50→20:23)
[2016-11-28] MEDS: glipiZIDE 5 MG TAB PO SCH (08:54)
[2016-11-28] MEDS: LOSARTAN 50 MG TAB PO SCH (08:56)
[2016-11-28] MEDS: INSULIN ASPART [NOVOLOG] 3 ML PEN SC SCH ×3 (08:56→17:25)
[2016-11-28] MEDS: metFORMIN 500 MG TAB PO SCH ×2 (09:03→17:46)
--- NOTE | 2016-11-28 09:14 | CONS ---
Date/Time of Note Date/Time of Note DATE: 11/28/16 TIME: 09:11 Assessment/Plan Assessment/Plan Problems: (1) Thrombocytopenia Comment: stable in the 60's... no bleeding...stable hct (2) HTN (hypertension) Comment: controlled (3) Diabetes mellitus Status: Chronic Comment: kasi (4) History of right hip replacement Comment: POD #2, doing well Consultation Date/Type/Reason Admit Date/Time Nov 26, 2016 at 07:02 Initial Consult Date 11/27/16 Type of Consultation: im 24 HR Interval Summary Free Text/Dictation some itch, but otherwise OK Exam/Review of Systems Vital Signs Vitals Vital Signs Date Time Temp Pulse Resp B/P Pulse Ox O2 Delivery O2 Flow Rate FiO2 11/28/16 08:25 98.1 87 20 121/87 94 11/28/16 02:20 Room Air 11/27/16 09:04 2.0 Intake and Output 11/27/16 11/27/16 11/28/16 14:59 22:59 06:59 Intake Total 2920 ml 1800 ml Output Total 1550 ml 1430 ml Balance 1370 ml 370 ml Exam Constitutional: alert, oriented Eyes: nl conjunctiva Neck: supple Respiratory: clear to auscultation Cardiovascular: regular rate and rhythm Gastrointestinal: soft Extremities: normal pulses (no calf pain) Results Result Diagram: 11/28/16 0445 11/28/16 0445 Results 24 hrs Laboratory Tests Test 11/27/16 11:10 11/27/16 13:03 11/27/16 17:46 11/28/16 04:45 Urine Color YELLOW Urine Clarity CLEAR Urine pH 5.0 Urine Specific [place] 1.011 Urine Ketones NEGATIVE Urine Nitrite NEGATIVE Urine Bilirubin NEGATIVE Urine Urobilinogen NEGATIVE Urine Leukocyte Esterase NEGATIVE Urine Microscopic RBC 133 H Urine Microscopic WBC 12 H Urine Bacteria FEW A Urine Hemoglobin 3+ H Urine Glucose NEGATIVE Urine Total Protein 1+ H Bedside Glucose 129 148 White Blood Count 6.2 Red Blood Count 3.17 L Hemoglobin 9.6 L Hematocrit 30.1 L Mean Corpuscular Volume 95.0 Mean Corpuscular Hemoglobin 30.3 Mean Corpuscular Hemoglobin Concent 31.9 L Red Cell Distribution Width 14.6 H Platelet Count 63 L Mean Platelet Volume 9.5 Neutrophils % 67.7 Lymphocytes % 20.8 Monocytes % 8.7 Eosinophils % 2.1 Basophils % 0.2 Nucleated Red Blood Cells % 0.0 Neutrophils # 4.2 Lymphocytes # 1.3 Monocytes # 0.5 Eosinophils # 0.1 Basophils # 0.0 Nucleated Red Blood Cells # 0.0 Sodium Level 140 Potassium Level 5.4 H Chloride Level 105 Carbon Dioxide Level 26 Anion Gap 14 Blood Urea Nitrogen 10 Creatinine 1.19 H Glucose Level 140 Calcium Level 8.1 L Test 11/28/16 08:54 Bedside Glucose 155 Medications Medications Current Medications Miscellaneous Information 1 ea 1 ea NOTE XX ; Start 11/26/16 at 07:00; Stop at 06:59 Lactated Ringer's (Lr) 1,000 ml @ 125 mls/hr Q8H IV Last administered on 22:19; Admin Dose 125 MLS/HR; Start 11/26/16 at 15:00 Acetaminophen/ Hydrocodone Bitart ([place] (5/325)) 1 tab Q4H PRN PO PAIN LEVEL 1 -3 Last administered on 11/27/16 14:49; Admin Dose 1 TAB; Start 11/26/16 at 15: 00 Acetaminophen/ Hydrocodone Bitart ([place] (5/325)) 2 tab Q4H PRN PO PAIN LEVEL 4 -7; Start 11/26/16 at 15:00 Hydromorphone HCl (Dilaudid) 1 mg Q3H PRN IV PAIN LEVEL 8-10 Last administered on 11/28/16 08:49; Admin Dose 1 MG; Start 11/26/16 at 15:00 Ondansetron HCl (Zofran Inj) 4 mg Q6H PRN IV NAUSEA AND/OR VOMITING; Start at 15:00 Bisacodyl (Dulcolax Supp) 10 mg Q12H PRN [place] CONSTIPATION; Start 11/26/16 at 15: 00 Magnesium Hydroxide (Milk Of Mag) 30 ml BID PRN PO CONSTIPATION; Start at 15:00 Sodium Biphosphate/ Sodium Phosphate (Fleet Enema) 133 ml DAILY PRN [place] CONSTIPATION; Start 11/26/16 at 15:00 Docusate Sodium (Colace) 100 mg BID PO Last administered on 11/28/16 08:50; Admin Dose 100 MG; Start 11/26/16 at 21:00 Diphenhydramine HCl (Benadryl) 25 mg Q6H PRN PO PRURITUS Last administered on 20:16; Admin Dose 25 MG; Start 11/26/16 at 15:00 Pantoprazole (Protonix Tab) 40 mg BID@06,18 PO Last administered on 11/28/16 05:44; Admin Dose 40 MG; Start 11/26/16 at 18:00 Trimethoprim/ Sulfamethoxazole (Bactrim (Ds)) 1 tab BID PO Last administered on 11/28/16 08:50; Admin Dose 1 TAB; Start 11/26/16 at 21:00 Gabapentin (Neurontin) 100 mg BID PO Last administered on 11/28/16 08:50; Admin Dose 100 MG; Start 11/26/16 at 21:00 Glipizide (Glucotrol) 5 mg AM PO Last administered on 11/28/16 08:54; Admin Dose 5 MG; Start 11/27/16 at 09:00 Losartan Potassium (Cozaar) 50 mg DAILY PO Last administered on 11/28/16 08:56 ; Admin Dose 50 MG; Start 11/26/16 at 16:00 Miscellaneous Information 1 ea NOTE XX ; Start 11/26/16 at 16:00 Glucose (Glutose) 15 gm Q15M PRN PO DECREASED GLUCOSE; Start 11/26/16 at 16:00 Glucose (Glutose) 22.5 gm Q15M PRN PO DECREASED GLUCOSE; Start 11/26/16 at 16: 00 Dextrose (D50w Syringe) 25 ml Q15M PRN IV DECREASED GLUCOSE; Start 11/26/16 at 16:00 Dextrose (D50w Syringe) 50 ml Q15M PRN IV DECREASED GLUCOSE; Start 11/26/16 at 16:00 Glucagon (Glucagen) 1 mg Q15M PRN IM DECREASED GLUCOSE; Start 11/26/16 at 16:00 Glucose 15 gm 15 gm Q15M PRN BUCCAL DECREASED GLUCOSE; Start 11/26/16 at 16:00 Cefazolin Sodium/ Sodium Chloride (Ancef/NS) 100 ml @ 100 mls/hr Q8 IVPB Last administered on 11/28/16 05:44; Admin Dose 100 MLS/HR; Start 11/27/16 at 14:00 ; Stop 11/28/16 at 11:00 CARLIN MONTEMAYOR MD Nov 28, 2016 09:14
--- NOTE | 2016-11-28 09:25 | PN ---
Date/Time of Note Date/Time of Note DATE: 11/28/16 TIME: 09:22 Assessment/Plan Lines/Catheters IV Catheter Type (from Nrsg): Peripheral IV Cooper in Place (from Nrsg): Yes Assessment/Plan Assessment/Plan POD # 2. Stable. Low platelets. -Drain d/c'd -Pain meds -OOB with PT -Hold ASA or other anticoags given thrombocytopenia -SCDs for DVT prophylaxis -D/C planning for d/c to SNF Wednesday Subjective 24 Hr Interval Summary Having some pain. [place] helping. Walked with PT yesterday. Exam/Review of Systems Vital Signs Vitals Vital Signs Date Time Temp Pulse Resp B/P Pulse Ox O2 Delivery O2 Flow Rate FiO2 11/28/16 08:25 98.1 87 20 121/87 94 11/28/16 02:20 Room Air 11/27/16 09:04 2.0 Intake and Output 11/27/16 11/27/16 11/28/16 15:00 23:00 07:00 Intake Total 2920 ml 1800 ml Output Total 1550 ml 1430 ml Balance 1370 ml 370 ml Exam Free Text/Dictation Dressing dry Incision clean, dry, and intact without redness or drainage. Some bruising. Thigh soft 5/5 Quadriceps, Tibialis Anterior, EHL, Gastroc Soleus, Peroneals Normal sensation Palpable DP/PT, CR < 2 Sec No distal edema Results Result Diagram: 11/28/16 0445 11/28/16 0445 WALT ABBOTT MD Nov 28, 2016 09:25
[2016-11-28] MEDS: HYDROCODONE/APAP (5/325) TAB PO PRN ×2 (13:48→22:24)
--- NOTE | 2016-11-28 16:40 | PN ---
Date/Time of Note Date/Time of Note DATE: 11/28/16 TIME: 16:38 Assessment/Plan VTE Prophylaxis VTE Prophylaxis Intervention: other (on blood thinners) Lines/Catheters [facility] [place] Urinary Cath still in place: Yes Reason Cath still needed: other (indicate) (not able to be out of bed) Assessment/Plan Chief Complaint/Hosp Course Patient is recovering well except for not getting out of bed today. Advised her to participate with PT as much as possible. Platelets are chronically low, stable during admit. Monitor. Problems: Subjective 24 Hr Interval Summary Free Text/Dictation She feels stiff, did not get out of bed today. Mild bruising on the arms. No sig bleeding. Exam/Review of Systems Vital Signs Vitals Vital Signs Date Time Temp Pulse Resp B/P Pulse Ox O2 Delivery O2 Flow Rate FiO2 11/28/16 08:25 98.1 87 20 121/87 94 11/28/16 02:20 Room Air 11/27/16 09:04 2.0 Intake and Output 11/27/16 11/27/16 11/28/16 15:00 23:00 07:00 Intake Total 2920 ml 1800 ml Output Total 1550 ml 1430 ml Balance 1370 ml 370 ml Exam Obese Skin with mild bruising on the left arm. Abd soft. Chest Clear. No sig edema Results Result Diagram: 11/28/165 11/28/165 Results 24 hrs Laboratory Tests Test 11/27/16 17:46 11/28/16 04:45 11/28/16 08:54 11/28/16 12:44 Bedside Glucose 148 155 111 White Blood Count 6.2 Red Blood Count 3.17 L Hemoglobin 9.6 L Hematocrit 30.1 L Mean Corpuscular Volume 95.0 Mean Corpuscular Hemoglobin 30.3 Mean Corpuscular Hemoglobin Concent 31.9 L Red Cell Distribution Width 14.6 H Platelet Count 63 L Mean Platelet Volume 9.5 Neutrophils % 67.7 Lymphocytes % 20.8 Monocytes % 8.7 Eosinophils % 2.1 Basophils % 0.2 Nucleated Red Blood Cells % 0.0 Neutrophils # 4.2 Lymphocytes # 1.3 Monocytes # 0.5 Eosinophils # 0.1 Basophils # 0.0 Nucleated Red Blood Cells # 0.0 Sodium Level 140 Potassium Level 5.4 H Chloride Level 105 Carbon Dioxide Level 26 Anion Gap 14 Blood Urea Nitrogen 10 Creatinine 1.19 H Glucose Level 140 Calcium Level 8.1 L Medications Medications Current Medications Miscellaneous Information 1 ea NOTE XX ; Start 11/26/16 at 07:00; Stop 11/30/16 at 06:59 Acetaminophen/ Hydrocodone Bitart ([place] (5/325)) 1 tab Q4H PRN PO PAIN LEVEL 1 -3 Last administered on 11/27/16 14:49; Admin Dose 1 TAB; Start 11/26/16 at 15: 00 Acetaminophen/ Hydrocodone Bitart ([place] (5/325)) 2 tab Q4H PRN PO PAIN LEVEL 4 -7 Last administered on 11/28/16 13:48; Admin Dose 2 TAB; Start 11/26/16 at 15: 00 Hydromorphone HCl (Dilaudid) 1 mg Q3H PRN IV PAIN LEVEL 8-10 Last administered on 11/28/16 08:49; Admin Dose 1 MG; Start 11/26/16 at 15:00 Ondansetron HCl (Zofran Inj) 4 mg Q6H PRN IV NAUSEA AND/OR VOMITING; Start at 15:00 Bisacodyl (Dulcolax Supp) 10 mg Q12H PRN [place] CONSTIPATION; Start 11/26/16 at 15: 00 Magnesium Hydroxide (Milk Of Mag) 30 ml BID PRN PO CONSTIPATION; Start at 15:00 Sodium Biphosphate/ Sodium Phosphate (Fleet Enema) 133 ml DAILY PRN [place] CONSTIPATION; Start 11/26/16 at 15:00 Docusate Sodium (Colace) 100 mg BID PO Last administered on 11/28/16 08:50; Admin Dose 100 MG; Start 11/26/16 at 21:00 Diphenhydramine HCl (Benadryl) 25 mg Q6H PRN PO PRURITUS Last administered on 20:16; Admin Dose 25 MG; Start 11/26/16 at 15:00 Pantoprazole (Protonix Tab) 40 mg BID@06,18 PO Last administered on 11/28/16 05:44; Admin Dose 40 MG; Start 11/26/16 at 18:00 Gabapentin (Neurontin) 100 mg BID PO Last administered on 11/28/16 08:50; Admin Dose 100 MG; Start 11/26/16 at 21:00 Glipizide (Glucotrol) 5 mg AM PO Last administered on 11/28/16 08:54; Admin Dose 5 MG; Start 11/27/16 at 09:00 Losartan Potassium (Cozaar) 50 mg DAILY PO Last administered on 11/28/16 08:56 ; Admin Dose 50 MG; Start 11/26/16 at 16:00 Miscellaneous Information 1 ea NOTE XX ; Start 11/26/16 at 16:00 Glucose (Glutose) 15 gm Q15M PRN PO DECREASED GLUCOSE; Start 11/26/16 at 16:00 Glucose (Glutose) 22.5 gm Q15M PRN PO DECREASED GLUCOSE; Start 11/26/16 at 16: 00 Dextrose (D50w Syringe) 25 ml Q15M PRN IV DECREASED GLUCOSE; Start 11/26/16 at 16:00 Dextrose (D50w Syringe) 50 ml Q15M PRN IV DECREASED GLUCOSE; Start 11/26/16 at 16:00 Glucagon (Glucagen) 1 mg Q15M PRN IM DECREASED GLUCOSE; Start 11/26/16 at 16:00 Glucose (Glutose) 15 gm Q15M PRN BUCCAL DECREASED GLUCOSE; Start 11/26/16 at 16 :00 MILLA JORDAN MD Nov 28, 2016 16:40
[2016-11-28 19:16] VITALS: BP 112/53; RESP 18
[2016-11-29 03:21] VITALS: BP 122/64; RESP 18
[2016-11-29 05:56] LABS: ABNORMAL IP MESSAGE 1; BASOPHILS % 0.4 % (0.0-2.0); EOSINOPHILS # 0.2 10^3/ul (0.0-0.5); EOSINOPHILS % 3.5 % (0.0-7.0); HEMATOCRIT 28.6 % (37.0-47.0); HEMOGLOBIN 9.2 g/dl (12.0-16.0); LYMPHOCYTES # 1.7 10^3/ul (0.8-2.9); LYMPHOCYTES % 25.3 % (15.0-51.0); MEAN CORPUSCULAR HEMOGLOBIN 30.3 pg (29.0-33.0); MEAN CORPUSCULAR HGB CONC 32.2 g/dl (32.0-37.0); MEAN CORPUSCULAR VOLUME 94.1 fl (82.0-101.0); MEAN PLATELET VOLUME 9.5 fl (7.4-10.4); MONOCYTE # 0.6 10^3/ul (0.3-0.9); MONOCYTES % 8.3 % (0.0-11.0); NEUTROPHIL # 4.2 10^3/ul (1.6-7.5); NEUTROPHILS % 61.8 % (39.0-77.0); PLATELET COUNT 79 10^3/UL (140-415); RED BLOOD COUNT 3.04 10^6/ul (4.20-5.40); RED CELL DISTRIBUTION WIDTH 14.8 % (11.5-14.5); WHITE BLOOD COUNT 6.8 10^3/ul (4.8-10.8)
[2016-11-29 06:00] LABS: POSITIVE DIFF @See below
[2016-11-29 06:21] LABS: CALCIUM 8.1 mg/dl (8.4-10.2); CREATININE 1.07 mg/dl (0.44-1.00); POTASSIUM 4.6 mmol/L (3.5-5.1)
[2016-11-29] MEDS: PANTOPRAZOLE (EC) 40 MG TAB PO SCH ×2 (06:32→17:48)
[2016-11-29] MEDS: ONDANSETRON 4 MG INJ IV PRN ×2 (06:57→17:48)
[2016-11-29] MEDS: INSULIN ASPART [NOVOLOG] 3 ML PEN SC SCH ×3 (07:20→17:25)
--- NOTE | 2016-11-29 08:05 | PN ---
Date/Time of Note Date/Time of Note DATE: 11/29/16 TIME: 08:01 Assessment/Plan VTE Prophylaxis VTE Prophylaxis Intervention: ambulation, SCD's Lines/Catheters IV Catheter Type (from Nrsg): Peripheral IV Cooper in Place (from Nrsg): Yes Assessment/Plan Assessment/Plan -Pain Meds as needed -Dress change performed today -OOB with PT -SCDs for DVT Prophylaxis -Continue monitoring with Internal Medicine -Patient Stable. Likely discharge tomorrow to [facility] if patient continues to progress well. Subjective 24 Hr Interval Summary 71-year-old female postop day 3 status post right total hip arthroplasty via anterior route. Pain improved since yesterday. No complaints in regards to surgical wound. Patient is able to get up and out of bed with assistance to use bedpan. She is able to walk around her room with front wheeled walker. Denies any calf pain, chest pain/tightness or shortness of breath. [place] was effective in improving pain complaints. Constitutional: improved Pain Control: mild Exam/Review of Systems Vital Signs Vitals Vital Signs Date Time Temp Pulse Resp B/P Pulse Ox O2 Delivery O2 Flow Rate FiO2 11/29/16 03:21 98.1 80 18 122/64 94 11/28/16 02:20 Room Air 11/27/16 09:04 2.0 Intake and Output 11/28/16 11/28/16 11/29/16 15:00 23:00 07:00 Intake Total 200 ml 1200 ml 700 ml Output Total 1200 ml Balance 200 ml 1200 ml -500 ml Exam Free Text/Dictation -Incision: Clean, Dry and Intact without any redness or drainage -Mild skin tearing to the inguinal fold on the right side. -Thigh soft -5/5 Quadriceps, Tibialis Anterior, EHL Gastrocnemius/Soleus and Peroneals -Normal Sensation -Palpable DP/PT, Capillary Refill <2 secs -No Distal Edema -Negative Paul Sign/No calf pain -Toes Freely Movable Constitutional: alert, oriented, well developed Results Result Diagram: 11/29/16 0442 11/29/16 0442 MUKUL BOSCH PA-C Nov 29, 2016 08:05
[2016-11-29 09:01] VITALS: BP 130/63; RESP 20
[2016-11-29] MEDS: HYDROmorphONE 1 MG/ML SYG IV PRN (09:15)
[2016-11-29] MEDS: DOCUSATE SODIUM 100 MG CAP PO SCH ×2 (09:15→20:53)
[2016-11-29] MEDS: LOSARTAN 50 MG TAB PO SCH (09:15)
[2016-11-29] MEDS: GABAPENTIN 100 MG CAP PO SCH ×2 (09:15→20:53)
[2016-11-29] MEDS: glipiZIDE 5 MG TAB PO SCH (09:16)
[2016-11-29] MEDS: metFORMIN 500 MG TAB PO SCH ×2 (09:16→17:48)
--- NOTE | 2016-11-29 09:33 | CONS ---
Date/Time of Note Date/Time of Note DATE: 11/29/16 TIME: 09:31 Assessment/Plan Assessment/Plan Problems: (1) Diabetes mellitus Status: Chronic Comment: controlled nicely (2) HTN (hypertension) Comment: on meds... controlled (3) Thrombocytopenia Comment: stable... no clinical bleeding/bruising (4) History of right hip replacement Comment: now POD #3 Rt THR... to [facility] in am Consultation Date/Type/Reason Admit Date/Time Nov 26, 2016 at 07:02 Initial Consult Date 11/27/16 Type of Consultation: im 24 HR Interval Summary Free Text/Dictation great... no new issues Exam/Review of Systems Vital Signs Vitals Vital Signs Date Time Temp Pulse Resp B/P Pulse Ox O2 Delivery O2 Flow Rate FiO2 11/29/16 09:01 98.1 84 20 130/63 93 11/28/16 02:20 Room Air 11/27/16 09:04 2.0 Intake and Output 11/28/16 11/28/16 11/29/16 15:00 23:00 07:00 Intake Total 200 ml 1200 ml 700 ml Output Total 1200 ml Balance 200 ml 1200 ml -500 ml Exam Constitutional: alert, oriented Psych: no complaints Eyes: nl conjunctiva Neck: supple Respiratory: clear to auscultation Cardiovascular: regular rate and rhythm Gastrointestinal: soft Extremities: normal pulses (no calf pain) Results Result Diagram: 11/29/16 0442 11/29/16 0442 Results 24 hrs Laboratory Tests Test 11/28/16 12:44 11/28/16 17:43 11/28/16 20:21 11/29/16 04:42 Bedside Glucose 111 103 118 White Blood Count 6.8 Red Blood Count 3.04 L Hemoglobin 9.2 L Hematocrit 28.6 L Mean Corpuscular Volume 94.1 Mean Corpuscular Hemoglobin 30.3 Mean Corpuscular Hemoglobin Concent 32.2 Red Cell Distribution Width 14.8 H Platelet Count 79 #L Mean Platelet Volume 9.5 Neutrophils % 61.8 Lymphocytes % 25.3 Monocytes % 8.3 Eosinophils % 3.5 Basophils % 0.4 Nucleated Red Blood Cells % 0.0 Neutrophils # 4.2 Lymphocytes # 1.7 Monocytes # 0.6 Eosinophils # 0.2 Basophils # 0.0 Nucleated Red Blood Cells # 0.0 Sodium Level 140 Potassium Level 4.6 Chloride Level 103 Carbon Dioxide Level 26 Anion Gap 16 Blood Urea Nitrogen 12 Creatinine 1.07 H Glucose Level 106 Calcium Level 8.1 L Test 11/29/16 08:28 Bedside Glucose 121 Medications Medications Current Medications Miscellaneous Information 1 ea NOTE XX ; Start 11/26/16 at 07:00; Stop 11/30/16 at 06:59 Acetaminophen/ Hydrocodone Bitart ([place] (5/325)) 1 tab Q4H PRN PO PAIN LEVEL 1 -3 Last administered on 11/27/16 14:49; Admin Dose 1 TAB; Start 11/26/16 at 15: 00 Acetaminophen/ Hydrocodone Bitart ([place] (5/325)) 2 tab Q4H PRN PO PAIN LEVEL 4 -7 Last administered on 11/28/16 22:24; Admin Dose 2 TAB; Start 11/26/16 at 15: 00 Hydromorphone HCl (Dilaudid) 1 mg Q3H PRN IV PAIN LEVEL 8-10 Last administered on 11/29/16 09:15; Admin Dose 1 MG; Start 11/26/16 at 15:00 Ondansetron HCl (Zofran Inj) 4 mg Q6H PRN IV NAUSEA AND/OR VOMITING Last administered on 11/29/16 06:57; Admin Dose 4 MG; Start 11/26/16 at 15:00 Bisacodyl (Dulcolax Supp) 10 mg Q12H PRN [place] CONSTIPATION; Start 11/26/16 at 15: 00 Magnesium Hydroxide (Milk Of Mag) 30 ml BID PRN PO CONSTIPATION Last administered on 11/29/16 06:33; Admin Dose 30 ML; Start 11/26/16 at 15:00 Sodium Biphosphate/ Sodium Phosphate (Fleet Enema) 133 ml DAILY PRN [place] CONSTIPATION; Start 11/26/16 at 15:00 Docusate Sodium (Colace) 100 mg BID PO Last administered on 11/29/16 09:15; Admin Dose 100 MG; Start 11/26/16 at 21:00 Diphenhydramine HCl (Benadryl) 25 mg Q6H PRN PO PRURITUS Last administered on 20:16; Admin Dose 25 MG; Start 11/26/16 at 15:00 Pantoprazole (Protonix Tab) 40 mg BID@18 PO Last administered on 11/29/16 06:32; Admin Dose 40 MG; Start 11/26/16 at 18:00 Gabapentin (Neurontin) 100 mg BID PO Last administered on 11/29/16 09:15; Admin Dose 100 MG; Start 11/26/16 at 21:00 Glipizide (Glucotrol) 5 mg AM PO Last administered on 11/29/16 09:16; Admin Dose 5 MG; Start 11/27/16 at 09:00 Losartan Potassium (Cozaar) 50 mg DAILY PO Last administered on 11/29/16 09:15 ; Admin Dose 50 MG; Start 11/26/16 at 16:00 Miscellaneous Information 1 ea NOTE XX ; Start 11/26/16 at 16:00 Glucose (Glutose) 15 gm Q15M PRN PO DECREASED GLUCOSE; Start 11/26/16 at 16:00 Glucose (Glutose) 22.5 gm Q15M PRN PO DECREASED GLUCOSE; Start 11/26/16 at 16: 00 Dextrose (D50w Syringe) 25 ml Q15M PRN IV DECREASED GLUCOSE; Start 11/26/16 at 16:00 Dextrose (D50w Syringe) 50 ml Q15M PRN IV DECREASED GLUCOSE; Start 11/26/16 at 16:00 Glucagon (Glucagen) 1 mg Q15M PRN IM DECREASED GLUCOSE; Start 11/26/16 at 16:00 Glucose (Glutose) 15 gm Q15M PRN BUCCAL DECREASED GLUCOSE; Start 11/26/16 at 16 :00 CARLIN MONTEMAYOR MD Nov 29, 2016 09:33
[2016-11-29] MEDS: HYDROCODONE/APAP (5/325) TAB PO PRN ×2 (12:34→17:49)
[2016-11-29 15:46] VITALS: BP 106/51; RESP 20
[2016-11-29] MEDS: BISACODYL 10 MG SUPP PR PRN ×2 (16:42→16:48)
--- NOTE | 2016-11-29 18:50 | CONS ---
DATE OF ADMISSION: 11/26/2016 DATE OF CONSULTATION: 11/26/2016 Dr. Bautista, thank you very much for allowing me to evaluate the above patient following right anterior hip arthroplasty. HISTORICAL EVENTS: As you well know, this patient has had progressive disabling pain involving her right hip and elected to proceed with surgery. Postoperatively, she is comfortable without cough, wheezing, shortness of breath, nausea, vomiting, abdominal or chest pain. MEDICATIONS: Prior to admission include losartan 50 mg per day, metformin 1000 mg b.i.d., tolterodine 4 mg per day, Neurontin 100 mg t.i.d., glipizide 5 mg b.i.d. PAST MEDICAL HISTORY: 1. Diabetes. 2. Hypertension. 3. Hyperlipidemia. 4. History of tachyarrhythmia, undergoing ablation in 1998. 5. History of left total knee replacement with footdrop occurring postoperatively. 6. Appendectomy. 7. History of urinary incontinence. 8. Mild thrombocytopenia followed by Dr. Mcwilliams with evidence of B12 deficiency, receiving the same monthly. 9. Fatty liver and splenomegaly as was noted by CT scan in 2015. FAMILY HISTORY: Positive for diabetes and coronary disease. SOCIAL HISTORY: Does not smoke. Does not drink. She is a guest service agent. She is single, has no children. ALLERGIES: FLAGYL, CODEINE, TRAMADOL, SIMVASTATIN, ATORVASTATIN, LISINOPRIL, AND IV CONTRAST. PHYSICAL EXAMINATION: GENERAL: [place] female, overweight, in no acute distress. VITAL SIGNS: Blood pressure 120/80, pulse is 88, respirations 20, she was afebrile. HEENT: Eyes, extraocular muscles were full. Nose, mouth and throat were normal. NECK: Supple. There was no jugular venous distention, thyroid enlargement, adenopathy. Carotids 2 plus. No bruits. LUNGS: Clear. HEART: Rhythm regular. No murmurs, no 3rd or 4th sound. ABDOMEN: Nontender. No organomegaly. EXTREMITIES: No pitting edema. NEUROLOGIC: No lateralizing motor weakness. IMPRESSION: 1. Stable postoperative total right hip replacement. 2. Evidence of bacteriuria and pyuria. Reviewed with ortho and will start Bactrim DS 1 b.i.d. 3. History of thrombocytopenia. Hematology to see in followup and decide on appropriate deep vein thrombosis prophylaxis. I suspect that aspirin will be given. 4. Diabetes. Will monitor sugars throughout and titrate a.c. sugars with short acting insulin. Dictated By: Clem Morgan MD /anthony/ammon /Document#: [id number]
[2016-11-29 19:32] VITALS: BP 120/58; RESP 18
[2016-11-30 01:36] VITALS: BP 121/58; RESP 18
[2016-11-30] MEDS: ONDANSETRON 4 MG INJ IV PRN ×2 (02:23→09:54)
[2016-11-30] MEDS: PANTOPRAZOLE (EC) 40 MG TAB PO SCH (06:03)
[2016-11-30 06:32] LABS: CALCIUM 8.5 mg/dl (8.4-10.2); CREATININE 1.05 mg/dl (0.44-1.00)
[2016-11-30] MEDS: INSULIN ASPART [NOVOLOG] 3 ML PEN SC SCH (07:20)
--- NOTE | 2016-11-30 08:13 | CONS ---
Date/Time of Note Date/Time of Note DATE: 11/30/16 TIME: 08:10 Assessment/Plan Assessment/Plan Problems: (1) Thrombocytopenia Comment: stable... no bleeding (2) HTN (hypertension) Comment: controlled (3) Diabetes mellitus Status: Chronic Comment: good control (4) Hip joint replacement status Comment: is now POD #4 s/p Rt THR...doing great... to [facility] for cont rehab.. is medically clear... final d/c per Dr Keenan Consultation Date/Type/Reason Admit Date/Time Nov 26, 2016 at 07:02 Initial Consult Date 11/27/16 Type of Consultation: im 24 HR Interval Summary Free Text/Dictation great... anxious to go to [facility] Exam/Review of Systems Vital Signs Vitals Vital Signs Date Time Temp Pulse Resp B/P Pulse Ox O2 Delivery O2 Flow Rate FiO2 11/30/16 01:36 98.2 80 18 121/58 94 11/28/16 02:20 Room Air 11/27/16 09:04 2.0 Intake and Output 11/29/16 11/29/16 11/30/16 15:00 23:00 07:00 Intake Total 1400 ml 500 ml Balance 1400 ml 500 ml Exam Constitutional: alert, oriented Head: normocephalic Neck: supple Respiratory: clear to auscultation Cardiovascular: regular rate and rhythm Gastrointestinal: soft Extremities: normal pulses (no calf pain) Results Result Diagram: 11/29/16 0442 11/30/16 0456 Results 24 hrs Laboratory Tests Test 11/29/16 08:28 11/29/16 12:21 11/29/16 17:27 11/30/16 04:56 Bedside Glucose 121 152 98 Sodium Level 139 Potassium Level 5.0 Chloride Level 102 Carbon Dioxide Level 28 Anion Gap 14 Blood Urea Nitrogen 11 Creatinine 1.05 H Glucose Level 136 Calcium Level 8.5 Medications Medications Current Medications Acetaminophen/ Hydrocodone Bitart ([place] (5/325)) 1 tab Q4H PRN PO PAIN LEVEL 1 -3 Last administered on 11/27/16 14:49; Admin Dose 1 TAB; Start 11/26/16 at 15: 00 Acetaminophen/ Hydrocodone Bitart ([place] (5/325)) 2 tab Q4H PRN PO PAIN LEVEL 4 -7 Last administered on 11/29/16 17:49; Admin Dose 2 TAB; Start 11/26/16 at 15: 00 Hydromorphone HCl (Dilaudid) 1 mg Q3H PRN IV PAIN LEVEL 8-10 Last administered on 11/29/16 09:15; Admin Dose 1 MG; Start 11/26/16 at 15:00 Ondansetron HCl (Zofran Inj) 4 mg Q6H PRN IV NAUSEA AND/OR VOMITING Last administered on 11/30/16 02:23; Admin Dose 4 MG; Start 11/26/16 at 15:00 Bisacodyl (Dulcolax Supp) 10 mg Q12H PRN [place] CONSTIPATION Last administered on 16:48; Admin Dose 10 MG; Start 11/26/16 at 15:00 Magnesium Hydroxide (Milk Of Mag) 30 ml BID PRN PO CONSTIPATION Last administered on 11/29/16 06:33; Admin Dose 30 ML; Start 11/26/16 at 15:00 Sodium Biphosphate/ Sodium Phosphate (Fleet Enema) 133 ml DAILY PRN [place] CONSTIPATION; Start 11/26/16 at 15:00 Docusate Sodium (Colace) 100 mg BID PO Last administered on 11/29/16 20:53; Admin Dose 100 MG; Start 11/26/16 at 21:00 Diphenhydramine HCl (Benadryl) 25 mg Q6H PRN PO PRURITUS Last administered on 20:16; Admin Dose 25 MG; Start 11/26/16 at 15:00 Pantoprazole (Protonix Tab) 40 mg BID@06,18 PO Last administered on 11/30/16 06:03; Admin Dose 40 MG; Start 11/26/16 at 18:00 Gabapentin (Neurontin) 100 mg BID PO Last administered on 11/29/16 20:53; Admin Dose 100 MG; Start 11/26/16 at 21:00 Glipizide (Glucotrol) 5 mg AM PO Last administered on 11/29/16 09:16; Admin Dose 5 MG; Start 11/27/16 at 09:00 Losartan Potassium (Cozaar) 50 mg DAILY PO Last administered on 11/29/16 09:15 ; Admin Dose 50 MG; Start 11/26/16 at 16:00 Miscellaneous Information 1 ea NOTE XX ; Start 11/26/16 at 16:00 Glucose (Glutose) 15 gm Q15M PRN PO DECREASED GLUCOSE; Start 11/26/16 at 16:00 Glucose (Glutose) 22.5 gm Q15M PRN PO DECREASED GLUCOSE; Start 11/26/16 at 16: 00 Dextrose (D50w Syringe) 25 ml Q15M PRN IV DECREASED GLUCOSE; Start 11/26/16 at 16:00 Dextrose (D50w Syringe) 50 ml Q15M PRN IV DECREASED GLUCOSE; Start 11/26/16 at 16:00 Glucagon (Glucagen) 1 mg Q15M PRN IM DECREASED GLUCOSE; Start 11/26/16 at 16:00 Glucose (Glutose) 15 gm Q15M PRN BUCCAL DECREASED GLUCOSE; Start 11/26/16 at 16 :00 CARLIN MONTEMAYOR MD Nov 30, 2016 08:13
[2016-11-30] MEDS: DOCUSATE SODIUM 100 MG CAP PO SCH (08:16)
[2016-11-30] MEDS: metFORMIN 500 MG TAB PO SCH (08:16)
[2016-11-30] MEDS: glipiZIDE 5 MG TAB PO SCH (08:17)
[2016-11-30] MEDS: GABAPENTIN 100 MG CAP PO SCH (08:17)
[2016-11-30] MEDS: LOSARTAN 50 MG TAB PO SCH (08:23)
--- NOTE | 2016-11-30 08:32 | PN ---
Date/Time of Note Date/Time of Note DATE: 11/30/16 TIME: 08:30 Assessment/Plan Lines/Catheters IV Catheter Type (from Nrsg): Saline Lock Cooper in Place (from Nrsg): No Assessment/Plan Assessment/Plan POD #4, s/p right anterior ANA -pain meds as needed -Hold ASA due to thrombocytopenia -SCDs BLE -OOB with PT -dressing changed -transfer to [facility] today -follow up in the office in 1 week Subjective 24 Hr Interval Summary No acute overnight events. Pain improving overall. Making progress with PT. Platelet count low, but stable. VSS, afebrile. Will plan to transfer to [facility] today. Exam/Review of Systems Vital Signs Vitals Vital Signs Date Time Temp Pulse Resp B/P Pulse Ox O2 Delivery O2 Flow Rate FiO2 11/30/16 01:36 98.2 80 18 121/58 94 11/28/16 02:20 Room Air 11/27/16 09:04 2.0 Intake and Output 11/29/16 11/29/16 11/30/16 15:00 23:00 07:00 Intake Total 1400 ml 500 ml Balance 1400 ml 500 ml Exam Free Text/Dictation Mild ecchymosis around incision. No erythema or warmth Dressing dry Incision clean, dry, and intact without redness or drainage 5/5 Quadriceps, Tibialis Anterior, EHL, Gastroc, Soleus, Peroneals Normal sensation Palpable DT/PT, CR <2 sec No distal edema Results Result Diagram: 11/29/16 0442 11/30/16 0456 LUKAS MUNOZ PA-C Nov 30, 2016 08:32
[2016-11-30 08:53] VITALS: BP 133/66; RESP 18
[2016-11-30] MEDS ORDERED: TOLTERODINE (SR) 2 MG CAP PO SCH (09:00)
[2016-11-30] MEDS ORDERED: TOLTERODINE (SR) 4 MG CAP PO SCH (09:00)
--- NOTE | 2016-11-30 13:26 | DS ---
Date/Time of Note Date/Time of Note DATE: 11/30/16 TIME: 13:18 Discharge Summary Admission/Discharge Info Admit Date/Time Nov 26, 2016 at 07:02 Discharge Date/Time Nov 30, 2016 at 11:53 Discharge Diagnosis s/p right anterior ANA Patient Condition: Good Procedures s/p right anterior ANA Hospital Course This is a 71 year old female who was seen in the clinic initially complaining of right hip pain. X-rays demonstrated advanced osteoarthritis of the right hip and it was thought she would benefit from a right anterior total hip arthroplasty. On 11/26/2016 the patient was admitted and taken to the operating room, where she underwent a right anterior total hip arthroplasty. There were no intraoperative complications. The patient tolerated the procedure well. She was taken to recovery room in stable condition. Pain was well-controlled oral pain medication. She was started on SCDs for DVT prophylaxis. Aspirin was held secondary to the patient having history of thrombocytopenia. She began physical therapy on postoperative day 1 and continued to make satisfactory progress. Ultimately she was deemed stable for transfer to [facility] on postoperative day 4. Prior to transfer, the incision was inspected and noted to be clean dry and intact. Dressing changes were done prior to patient being transferred. DISCHARGE INSTRUCTIONS: The patient be transferred to [facility] in stable condition. She is to resume a normal diet. She is weightbearing as tolerated on the right lower 70. She will begin physical therapy at the half-way facility. She will be transferred with a medicine reconciliation list and is to resume all of her normal home medication. The patient is to call the office or go to emergency room for any concerns including increased redness, swelling, drainage, fever, or any concerns regarding the operation or site of incision. Home Meds Active Scripts Pantoprazole* (Pantoprazole*) 40 Mg Tablet., 40 MG PO BID@06,18 for 40 Days, # 40 Prov:LUKAS MUNOZ PA-C 11/27/16 Hydrocodone Bit-Acetaminophen (Hydrocodone Bit-APAP) 5-325MG Tablet, 1 TAB PO Q4H Y for PAIN LEVEL 1-3 for 30 Days, #60 TAB Prov:LUKAS MUNOZ PA-C 11/27/16 Reported Medications Gabapentin* (Gabapentin*) 100 Mg Capsule, 100 MG PO BID, #90 CAP 11/26/16 Metformin Hcl* (Metformin Hcl*) 1,000 Mg Tablet, 1000 MG PO WITH BREAKFAST DINNE , #30 TAB 11/26/16 Glipizide* (Glipizide*) 5 Mg Tablet, 5 MG PO BID, TAB 11/26/16 Tolterodine Tartrate* (Tolterodine Tartrate* ER) 4 Mg Cap.er.24h, 4 MG PO DAILY , #30 CAP 11/26/16 Losartan Potassium* (Losartan Potassium*) 50 Mg Tablet, 50 MG PO DAILY, TAB 11/26/16 Discontinued Reported Medications Loratadine (Claritin) 10 Mg Tablet, 10 MG PO DAILY 06/01/11 Spironolactone* (Aldactone*) 50 Mg Tablet, 50 MG PO BID 06/01/11 Lisinopril* (Lisinopril*) 10 Mg Tablet, 10 MG PO DAILY 06/01/11 Metformin* (Glucophage*) 500 Mg Tab, 500 MG PO BID 06/01/11 Simvastatin* (Simvastatin*) 80 Mg Tablet, 80 MG PO HS 06/01/11 Zolpidem Tartrate* (Ambien*) 10 Mg Tablet, 10 MG PO PRN HS 06/01/11 Follow-up Plan Follow-up in the on 12/07/2016 Primary Care Provider Fahad Keenan MD Pending Labs Laboratory Tests Test 11/29/16 17:27 11/30/16 04:56 11/30/16 08:10 Bedside Glucose 98mg/dL (70-220) 135mg/dL (70-220) Sodium Level 139mmol/L (135-144) Potassium Level 5.0mmol/L (3.5-5.1) Chloride Level 102mmol/L (97-110) Carbon Dioxide Level 28mmol/L (21-31) Anion Gap 14 (8-16) Blood Urea Nitrogen 11mg/dl (7-20) Creatinine 1.05mg/dl (0.44-1.00) Glucose Level 136mg/dl (70-220) Calcium Level 8.5mg/dl (8.4-10.2) LUKAS MUNOZ PA-C Nov 30, 2016 13:25
== END 2016-11-30 11:53 | DRG 470 ==
LOC: REC 07:02 → MS1 16:10
PROVIDERS: ADMIT Orthopaedic Surgery; ATTEND Orthopaedic Surgery
PROC: 0SR904Z Replacement of Right Hip Joint with Ceramic on Polyethylene Synthetic Substitute, Open Approach (ICD-10-PCS; principal; 2016-11-26 10:00)
DX: M16.11 Unilateral primary osteoarthritis, right hip (principal); D69.6 Thrombocytopenia, unspecified; Z68.43 Body mass index [BMI] 50.0-59.9, adult; E11.9 Type 2 diabetes mellitus without complications; E66.01 Morbid (severe) obesity due to excess calories; I10 Essential (primary) hypertension; E78.5 Hyperlipidemia, unspecified; D64.9 Anemia, unspecified
CPT/HCPCS: 72170; 73530; 80048; 81001; 82962; 83735; 84100; 85025; 86850; 86900; 86901; 86920; 87081; 87086; 88305; 88311; 97003; 97110; 97116; 97162; 97166; 97530; 97535; C1713; C1776; J0171; J0690; J0697; J0735; J1170; J1644; J1815; J1885; J2175; J2250; J2274; J2405; J2765; J3010; J3370; J7040; J7120; J7999

== ENCOUNTER → 2016-12-04 | Outpatient (CLI) | payer MEDICARE, BC ==
[~2016-12-04] MED LIST changes: -BUPIVACAINE LIPOSOME/PF 266 MG/20 ML VIAL INFIL SCH; -CEFAZOLIN 1 GM INJ ONE; -CEFAZOLIN 2GM/50 ML (PMX) 50 ML X1 BEFORE INCISION IVPB SCH; -CELECOXIB 400 MG PO X1 DOSE PO SCH; -EXPAREL NOTE (BUPIVICAINE LIPOSOMAL) XX SCH; +GABA100C14 PO; +GLIP5TAB13 PO; +HYDR-3498 PO; -LACTATED RINGER'S 1,000 ML IV SCH; -LISI10TA2 PO; -LORA-407 PO; +LOSA50TA6 PO; +METF1000 PO; -METF500T4 PO; -PAIN COCKTAIL-CEFUROXIME IRR SCH; +PANT40TA4 PO; -PREGABALIN 300 MG PO X1 PO SCH; -SIMV-39 PO; -SOD CHLORIDE 0.9% IV SCH; -SOD CHLORIDE 0.9% IVPB SCH; -SPIR50TA31 PO; +TOLT4CAP13 PO; -TRANEXAMIC ACID IV SCH; -TRANEXAMIC ACID IVPB SCH; -ZOLP10TA PO; -oxyCODONE (CR) 10 MG TAB [oxyCONTIN] X1 DOSE PO SCH; -traMADOL 50 MG TAB X 1 DOSE PO SCH
--- NOTE | 2016-12-04 16:18 | PN ---
Date/Time of Note Date/Time of Note DATE: 12/04/16 TIME: 16:13 Assessment/Plan VTE Prophylaxis VTE Prophylaxis Intervention: ambulation Assessment/Plan Assessment/Plan ASSESSMENT: 1. 7 days status post right anterior total hip arthroplasty 2. Nonspecific right knee ecchymosis secondary to history of thrombocytopenia PLAN: The ecchymosis appears to be nonspecific in nature. Her x-ray findings are negative for any acute fracture or dislocation. It is likely she has ecchymosis secondary to the surgery and her history of thrombocytopenia. She is to continue doing physical therapy for gait training as well as overall range of motion. We will hold off on any aspirin or other medication for DVT prophylaxis given her history. would like to start on Keflex 500 mg 4 times daily as well as Bactrim DS 2 times daily given the mild erythema around the incision. We will see her back in 4 days to have her verito removed. Subjective 24 Hr Interval Summary Free Text/Dictation The patient presents today for a postoperative evaluation on her right hip. She is 7 days status post right anterior total hip arthroplasty. She has been at [facility]. They noticed some ecchymosis on the anterior aspect of her right knee which was concerning so they sent her in for evaluation. She denies any trauma, fall, or injury. She does have a history of thrombocytopenia. She has been doing physical therapy and denies any significant right hip or knee pain. She denies any fevers or chills. She presents today for her first postoperative evaluation as well as evaluation of the ecchymosis to the anterior aspect of her right knee. Exam/Review of Systems Exam On exam today, she is alert and oriented 4, and in no acute distress. Exam of the right hip demonstrates the incision to be clean, dry, and intact. Verito are in place. There is some mild erythema which appears secondary to dermatitis from the adhesive. There is no warmth, pus, or drainage noted. She has no pain with passive range of motion of the right hip. There is some nonspecific ecchymosis along the anterior aspect of right knee. She has no pain with knee flexion or extension. Compartments are soft. Homans sign is negative. She does have some mild soft tissue swelling of the right lower extremity. She is neurovascularly intact distally. IMAGING: X-rays of the right knee were obtained today and reviewed by me. They demonstrate advanced osteoarthritis of the right knee. There are no fractures or dislocations identified. Additionally x-rays of the right hip were obtained today and reviewed by me. They demonstrate the prosthesis to be in good anatomic location. There is no fractures or dislocations identified. LUKAS MUNOZ PA-C Dec 04, 2016 16:18
--- NOTE | 2016-12-04 17:04 | RADRPT ---
PROCEDURE: XR Right hip and pelvis. CLINICAL INDICATION: Right hip pain. Pelvic pain. Postop. TECHNIQUE: Two views. Frontal pelvis and frontal right hip. COMPARISON: 11/26/2016. FINDINGS: There is no fracture or dislocation. There are right lateral skin verito. The Cooper catheter has been removed. There is a right hip total arthroplasty which appears satisfactory. The left hip is grossly normal. There is no lytic or blastic lesion. The sacroiliac joints are grossly normal. IMPRESSION: 1. Satisfactory postoperative appearance of the right hip. 2. Grossly normal appearance of the left hip. RPTAT: QQ .Kwaku Rubio MD, MD Date Time Electronically viewed and signed by .Kwaku Rubio MD, on 12/04/2016 17:04 .R/
--- NOTE | 2016-12-04 17:06 | RADRPT ---
PROCEDURE: Right knee radiographs. CLINICAL INDICATION: Right knee pain. TECHNIQUE: Four views. Weight bearing. Frontal, lateral, oblique, and patellar view. COMPARISON: No prior studies are available for comparison. FINDINGS: There is no fracture or dislocation. The soft tissues are normal. There are degenerative changes with osteophytes arising from all 3 joint compartment margins area th ere is medial joint compartment , femoral joint compartment narrowing, subarticular sclerosis, and m ild deformity. A small intra-articular loose body probably present in the intercondylar notch. There is no lytic or blastic lesion. There is no radiopaque foreign body. IMPRESSION: 1. Moderate to severe degenerative changes of the right knee. 2. Probable small intra-articular loose body present in the inter condylar notch. 3. Otherwise unremarkable study. RPTAT: QQ .Kwaku Rubio MD, MD Date Time Electronically viewed and signed by .Kwaku Rubio MD, MD on 12/04/2016 17:06 .R/
== END | disposition home or self-care (01) ==
LOC: HKI 14:23
PROVIDERS: ATTEND Orthopaedic Surgery
DX: Z47.1 Aftercare following joint replacement surgery (principal); Z96.641 Presence of right artificial hip joint
CPT/HCPCS: 73502

== ENCOUNTER → 2016-12-07 | Outpatient (CLI) | payer MEDICARE, BC ==
--- NOTE | 2016-12-07 10:44 | PN ---
Date/Time of Note Date/Time of Note DATE: 12/07/16 TIME: 10:40 Assessment/Plan VTE Prophylaxis VTE Prophylaxis Intervention: ambulation Assessment/Plan Assessment/Plan ASSESSMENT: 10 days status post right anterior total hip arthroplasty PLAN: The verito removed today, and Steri-Strips were applied. She is to continue the antibiotics are prescribed to her at her last visit. We will continue to hold aspirin for DVT prophylaxis given her history of thrombocytopenia. She is to continue doing physical therapy at [facility]. We will see her back in 4 weeks for repeat evaluation. Subjective 24 Hr Interval Summary Free Text/Dictation The patient presents today for a follow-up evaluation on her right hip. She is now 10 days status post right anterior total hip arthroplasty. She is currently at [facility]. She is doing well overall. The ecchymosis to her right knee has improved. She denies any fevers or chills. She is doing physical therapy at the facility. Aspirin has been held for DVT prophylaxis due to her history of thrombocytopenia. She presents today for a postoperative evaluation. Exam/Review of Systems Exam On exam today, she is alert and oriented 4, and in no acute distress. Exam of the incision demonstrates to be clean, dry, and intact. Verito are in place. There is no erythema or warmth noted. There is no pus or drainage. There is some mild soft tissue swelling of the right lower extremity. There is no pain with passive range of motion of the right hip joint. Homans sign is negative. Compartments are otherwise soft. She is neurovascularly intact distally. IMAGING: X-rays of the right hip were reviewed from outside facility demonstrate the right hip to be in the appropriate location with no acute fractures or dislocations identified. LUKAS MUNOZ PA-C Dec 07, 2016 10:44
== END | disposition home or self-care (01) ==
LOC: HKI 09:43
PROVIDERS: ATTEND Orthopaedic Surgery
DX: Z47.1 Aftercare following joint replacement surgery (principal); Z96.641 Presence of right artificial hip joint

== ENCOUNTER → 2016-12-16 | Outpatient (CLI) | payer MEDICARE, BC | END | disposition home or self-care (01) | LOC: HKI 14:44 | PROVIDERS: ATTEND Orthopaedic Surgery | DX: Z47.1 Aftercare following joint replacement surgery (principal); Z96.641 Presence of right artificial hip joint; M16.11 Unilateral primary osteoarthritis, right hip ==

== ENCOUNTER → 2016-12-23 | Outpatient (CLI) | payer MEDICARE, BC ==
[~2016-12-23] MED LIST changes: +LISI10TA2 PO; +LORA-407 PO; +METF500T4 PO; +SIMV-39 PO; +SPIR50TA31 PO; +ZOLP10TA PO
== END | disposition home or self-care (01) ==
LOC: HKI 08:59
PROVIDERS: ATTEND Orthopaedic Surgery
DX: M16.11 Unilateral primary osteoarthritis, right hip (principal); Z47.1 Aftercare following joint replacement surgery; Z96.651 Presence of right artificial knee joint